=== PATIENT | male | born 1975 | race Caucasian/White ===

== ENCOUNTER 2016-04-28 13:01 | Emergency (ER) ==
--- NOTE | 2016-04-28 13:58 | PROVIDER DOCUMENTATION ---
HPI-Respiratory General - General Chief Complaint: Cold Symptoms Stated Complaint: COLD SX Time Seen by Provider: 04/28/16 13:22 Source: patient Allergies/Adverse Reactions: Patient Allergies Allergy/AdvReac Type Severity Reaction Status Date / Time No Known Allergies Allergy Verified 04/28/16 14:00 Home Medications: Home Medication List Medication Instructions Recorded Confirmed Last Taken Type Albuterol Sulfate [Proair Hfa] 8.5 gm IH Q4-6H PRN PRN #1 04/28/16 Unknown Rx [email or web address] Azithromycin [Zithromax Z-Morales] 250 mg PO DIRECTED #1 pkg 04/28/16 Unknown Rx Benzonatate [Tessalon] 100 mg PO TID PRN PRN #20 capsule 04/28/16 Unknown Rx Prednisone 20 mg PO BID #10 tablet 04/28/16 Unknown Rx - History of Present Illness-Resp Nature of Presenting Problem: 41 year old WM presents with c/o cough, congestion, sore throat and wheezing for 3-4 days, getting worse. associated subjective fever/chills. pt reports wheezing resolved at this time. pt reports the cough is productive green/yellow sputum and has been keeping him awake for 3 days. he has tried multiple OTC medications without relief. Quality of Pain: reports: sharp (throat), stabbing (throat) Severity in ED: reports: mild Onset/Duration: reports: 3 days ago, 4 days ago Timing: reports: still present, constant, getting worse Context: reports: recent URI Exposure: reports: unknown cause Cough Quality/Degree: reports: severe, productive cough, sputum. denies: blood streaked sputum Episode Frequency: no prior episodes Current Respiratory Medication Therapy: Initiated none Modifying Factors: improves with: nothing Associated Symptoms: reports: cough, fever/chills, flu-like symptoms, hurts to breathe, nasal congestion, nasal drainage, shortness of breath, short of breath , sore throat, wheezing Similar Symptoms Previously?: No Recently seen or treated by another doctor?: No Review of Systems - Adult - REVIEW OF SYSTEMS - ADULT Constitutional: reports: see HPI, chills, fever, fatique Eyes: reports: no symptoms reported. denies: discharge, blurred vision, double vision, redness Ears, Nose, Mouth & Throat: reports: see HPI, hoarseness, throat pain, throat swelling. denies: ear discharge, ear pain, nose pain, loose teeth Cardiovascular: reports: no symptoms reported. denies: chest pain, palpitations , syncope Respiratory: reports: see HPI, cough, shortness of breath, wheezing. denies: chronic cough, dyspnea on exertion, excessive sputum production, hemoptysis, pleurisy Gastrointestinal: reports: no symptoms reported. denies: abdominal pain, diarrhea, nausea, vomiting Genitourinary: reports: no symptoms reported. denies: dysuria, hematuria, urgency Musculoskeletal: reports: no symptoms reported. denies: bone pain, joint pain, joint swelling, neck pain Integumentary: reports: no symptoms reported. denies: hives, itching, rash, skin sores/ulcer Neurological: reports: no symptoms reported. denies: dizziness/vertigo, headache/migraines Psychiatric: reports: no symptoms reported Endocrine: reports: no symptoms reported Hematologic/Lymphatic: reports: no symptoms reported Allergic/Immunologic: reports: no symptoms reported All Other Systems: Reviewed and Negative Past History - Adult - PAST MEDICAL HISTORY-ADULT Review of Records: reports: Old Records Reviewed, Nursing Assessment Review, Medications Reviewed, Social history reviewed & non-contributory. Major Childhood Illnesses: reports: denies history Cardiovascular: reports: denies history Respiratory: reports: denies history Gastrointestinal: reports: denies history Obstetrical/Gynecological: reports: denies history Genitourinary: reports: denies history Musculoskeletal: reports: denies history Neurological: reports: denies history Endocrine/Immune: reports: denies history Other Conditions: reports: denies history - FAMILY HISTORY Family History: reviewed, not pertinent - SOCIAL HISTORY Smoking: denies, non-smoker Substance Use: none/never Alcohol Use Frequency: never Physical Exam-General - PHYSICAL EXAM-ADULT Initial Vital Signs Reviewed: Yes - CONSTITUTIONAL General Appearance: appears well, alert, no apparent distress. negative: mild distress, moderate distress, severe distress - EYES Eyes: pink conjunctivae. negative: conjuctival exudate, pale conjunctivae, sclera injected, scleral icterus, subconjunctival hemorrhage - HEAD, EARS, NOSE, MOUTH & THROAT HENMT: normocephalic/atraumatic, moist mucous membranes, pharyngeal erythema, TM obscurred by cerumen (biltaerally). negative: normal ENT inspection, tonsillar exudate, frontal tenderness, maxillary tenderness - NECK Neck: non-tender, full range of motion, supple, normal inspection. negative: limited range of motion, lymphadenopathy, tender midline, thyromegaly - RESPIRATORY Respiratory: chest non-tender, no pleuratic chest pain, no respiratory distress , no accessory muscle use, decreased breath sounds. negative: lungs clear, normal breath sounds, respiratory distress, accessory muscle use, crackles, rales, rhonchi, stridor, wheezing - CARDIOVASCULAR Cardiovascular: normal peripheral pulses, regular rate, rhythm, no edema, no gallop - CHEST (BREASTS) Chest/Breast: no tenderness - GASTROINTESTINAL (ABDOMEN) Abdominal Exam: normal bowel sounds, non tender, soft - GENITOURINARY Male Genitalia: deferred Rectal Exam: deferred Hemoccult Exam: deferred - LYMPHATIC Lymphatic: negative: cervical node tenderness - MUSCULOSKELETAL Back Exam: normal inspection, no CVA tenderness, no vertebral tenderness. negative: CVA tenderness, decreased range of motion, swelling, vertebral tenderness Extremity: normal range of motion, non-tender, normal gait, normal inspection, no pedal edema, no calf tenderness, normal capillary refill. negative: erythema , inflammation, joint effusion, pulse deficit, pedal edema, slow capillary refill, swelling, tenderness Peripheral Pulses: radial (R): 3+, radial (L): 3+ - SKIN Integumentary: normal color, normal turgor, warm/dry. negative: pallor, petechiae, purpura, rash - NEUROLOGIC Neurologic: grossly normal, no motor/sensory deficits. negative: facial droop, focal weakness, motor weakness, sensory deficit - PSYCHIATRIC Psych/Mental Status: normal mood/affect, normal thought content, normal thought process Progress - PLAN OF CARE/RESULTS Progress/Plan/Lab Results: Orders Category Date Time Status DIRECT STREP Stat Lab 04/28/16 13:00 Completed INFLUENZA SCREEN A/B Stat Lab 04/28/16 13:00 Completed Vital Signs - 24 hr 04/28/16 13:06 Temperature 98.1 F Pulse Rate 104 H Respiratory 20 Rate Blood Pressure 165/113 O2 Sat by Pulse 96 Oximetry - XRAY 1 XRAY Study: Chest Impression: Normal Departure - Departure Time of Disposition Order: 13:56 DIAGNOSIS: Bronchitis Disposition: HOME 01 Certified Medical Emergency: Emergent Condition: Stable Additional Instructions: ED Follow Up Instructions: You have been treated by a care provider in the Emergency Department. These instructions are being provided to you so you can have an understanding of how to care for yourself upon discharge. Upon discharge from the Emergency Department, you are responsible for making arrangements for follow-up care by a physician of your choice. Take all prescribed medications as directed. Return to the Emergency Department immediately for any new or worsening symptoms. You may call the Physician Referral phone number at [phone] to obtain a list of Physicians who are taking new patients. Prescriptions: Prednisone 20 mg PO BID #10 tablet Albuterol Sulfate [Proair Hfa] 8.5 gm IH Q4-6H PRN PRN #1 [email or web address] PRN Reason: Wheezing Benzonatate [Tessalon] 100 mg PO TID PRN PRN #20 capsule PRN Reason: Cough Azithromycin [Zithromax Z-Morales] 250 mg PO DIRECTED #1 pkg Referrals: None,PCP [Primary Care Provider[facility] - [facility] - Instructions: Acute Bronchitis Attestation - Physician/ MARTHA Attestation Patient care was provided by Advanced Practice Provider:: Yes Advanced Practice Provider:: Ronnie Lafleur Advanced Practice Provider documentation review:: The Mid-level provider documentation, treatment plan and medical decision making was reviewed by the physician who agrees with all treatment and medical decision making by the P.
[2016-04-28 14:31] VITALS: BP 148/90
--- NOTE | 2016-04-28 14:58 | Diag Imaging Result Document ---
PROCEDURE NAME: CHEST-2 VIEWS - 04/28/2016 CHEST X-RAY, 2 VIEWS: COMPARISON: None. FINDINGS: The lungs are normally expanded and clear. Heart size and mediastinal contours are normal. No pneumothorax or pleural effusion. IMPRESSION: Negative exam.
== END 2016-04-28 14:31 | disposition home or self-care (01) ==
LOC: ED 13:01
DX: J40 Bronchitis, not specified as acute or chronic (principal); R05 Cough; R09.81 Nasal congestion; J02.9 Acute pharyngitis, unspecified; R06.2 Wheezing; R50.9 Fever, unspecified; R09.3 Abnormal sputum; R07.1 Chest pain on breathing; R06.02 Shortness of breath; R53.83 Other fatigue; R49.0 Dysphonia; R22.1 Localized swelling, mass and lump, neck
CPT/HCPCS: 71020; 87081; 87430; 87804